=== PATIENT | female | born 1940 | race Caucasian/White ===

== ENCOUNTER → 2017-05-23 | Outpatient (CLI) | payer OTHER ==
[~2017-05-23] MED LIST: ALLOPURINOL 10100 M3 PO; ALTACE10 MG PO; ANTIVERT25 MG PO; ASPIR 8181 MG PO; AUGMENTIN 875875 MG PO; BENTYL20 MG PO; CARVEDILOL12.5 MG PO; CLONIDINE0.1 PO; CO Q-10100 MG PO; COREG12.5 MG PO; COREG25 MG PO; CRESTOR5 MG PO; DARVOCET-N 1001 EACH PO; GARLIPURE600 MG PO; GLUCOTEN CAPLE1 EACH PO; HYDRALAZINE 2525 MG PO; HYDRALAZINE 5050 MG PO; HYDROCHLOROTH12.5 M1 PO; LISINOPRIL-HCT1 EAC1 PO; LISINOPRIL20 MG PO; LOPRESSOR25 PO; NASONEX17 GM NASAL; NORVASC5 M1 PO; OMEGA 3 1,0001 EACH PO; PRILOSEC 20 MG20 MG PO; SYNTHROID50 MCG PO; TRIAMTERENE-HC1 EAC2 PO; [UNRECOGNIZED DRUG - OTHER]
== END ==
LOC: M.CT 09:09
DX: Z13.6 Encounter for screening for cardiovascular disorders (principal)

== ENCOUNTER → 2017-06-06 | Outpatient (CLI) | payer OTHER | LOC: M.ULTRA 08:43 | DX: N18.3 Chronic kidney disease, stage 3 (moderate) (principal) ==

== ENCOUNTER 2017-12-29 13:32 | Emergency (ER) | payer OTHER ==
[~2017-12-29] VITALS: Ht 162.6 cm; Wt 78.5 kg
[~2017-12-29 13:32] MED LIST changes: -ALTACE10 MG PO; -ANTIVERT25 MG PO; -CLONIDINE0.1 PO; -COREG12.5 MG PO; -COREG25 MG PO; -HYDRALAZINE 5050 MG PO; -HYDROCHLOROTH12.5 M1 PO; -NORVASC5 M1 PO
[2017-12-29] MEDS ORDERED: COREG12.5 MG PO (13:44)
[2017-12-29 14:02] LABS: ABSOLUTE BASOPHILS 0.1 thou/uL (0.0-0.2); ABSOLUTE EOSINOPHILS 0.1 thou/uL (0.0-0.7); ABSOLUTE MONOCYTES 0.5 thou/uL (0.0-1.2); ABSOLUTE NEUTROPHILS 5.2 thou/uL (1.6-8.1); EOSINOPHILS 0.9 %; HEMATOCRIT 37.8 % (37.0-47.0); HEMOGLOBIN 12.9 gm/dL (12.0-15.0); LYMPHOCYTES 25.3 %; MCH 32.1 pg (26.0-34.0); MCV 94.3 fL (80.0-100.0); MONOCYTES 6.8 %; MPV 7.2 fl. (7.2-11.1); NUCLEATED RBCS 0 /100WBC; PLATELET COUNT* 279 thou/uL (150-400); RBC 4.01 mil/uL (4.20-5.00); RDW-CV 14.1 % (10.5-14.5); WBC 7.8 thou/uL (4.0-11.0)
[2017-12-29 14:08] LABS: ANION GAP 5 mmol/L (7-16); BUN 17 mg/dL (7-18); CALCIUM 9.3 mg/dL (8.5-10.1); CHLORIDE 92 mmol/L (98-107); CO2 30 mmol/L (21-32); CREATININE 1.1 mg/dL (0.6-1.3); GLUCOSE 131 mg/dL (70-99); POTASSIUM 3.7 mmol/L (3.5-5.1); SODIUM 127 mmol/L (136-145)
[2017-12-29 14:16] LABS: ALBUMIN 3.7 g/dL (3.4-5.0); ALKALINE PHOSPHATASE 69 U/L (46-116); SGOT 19 U/L (15-37); SGPT 21 U/L (30-65); TOTAL BILIRUBIN 0.6 mg/dL (<0.1-1.0); TROPONIN-I LEVEL <0.06 ng/mL (<0.06)
[2017-12-29 15:05] LABS: URINE BILIRUBIN NEGATIVE (Negative); URINE BLOOD NEGATIVE (Negative); URINE CLARITY CLEAR; URINE COLOR YELLOW; URINE GLUCOSE-RANDOM NEGATIVE (Negative); URINE KETONES NEGATIVE (Negative); URINE LEUKOCYTES-REFLEX NEGATIVE (Negative); URINE NITRITE-REFLEX NEGATIVE (Negative); URINE PROTEIN NEGATIVE (Negative); URINE SPECIFIC GRAVITY <= 1.005 (1.005-1.030); URINE UROBILINOGEN 0.2 E.U./dl (0.2-1.0)
[2017-12-29] MEDS ORDERED: COREG25 MG PO ×2 (16:01→16:28)
[2017-12-29] MEDS ORDERED: ANTIVERT25 MG PO ×2 (16:01→16:28)
[2017-12-29] MEDS ORDERED: HYDRALAZINE 5050 MG PO (16:01)
[2017-12-29 16:05] VITALS: BP 168/57
[2017-12-29] MEDS ORDERED: NORVASC5 M1 PO (16:28)
--- NOTE | 2017-12-30 10:36 | EKG ---
[place] [address] ELECTROCARDIOGRAM REPORT Name: ARMANDO RYAN Room: [facility]#: [id number] Admission: 12/29/17 Attend Phys: Discharge: 12/29/17 Date of : 38 Report #: [id number] THIS REPORT FOR: //name// [facility] ED Test Date: 2017-12-29 Test Time: 14:08:15 Pat Name: ARMANDO RYAN Department: Room: Gender: F Nutrient Management Specialist: ANEL : 1940 Requested By: Miki Gracia Order Number: [id number] MD: Matteo Mercado Measurements Intervals [place] Rate: 59 P: 0 SD: 207 QRS: -53 QRSD: 102 T: 48 QT: 415 QTc: 412 Interpretive Statements Sinus rhythm Probable left atrial enlargement Left anterior fascicular block Abnormal R-wave progression, late transition Compared to ECG 12/28/2016 12:14:58 Myocardial infarct finding no longer present Electronically Signed On 12-30-2017 10:36:14 CDT by Matteo Mercado [email or web address] <ELECTRONICALLY SIGNED> By: Matteo Mercado MD, [facility] 12/30/17 1036 1408 1408 Matteo Mercado MD, [facility] /EPI
== END 2017-12-29 16:35 | disposition home or self-care (01) ==
LOC: M.ERS 13:32
PROVIDERS: Emergency Medicine Emergency Medical Services
DX: I10 Essential (primary) hypertension (principal); R42 Dizziness and giddiness; K21.9 Gastro-esophageal reflux disease without esophagitis; E78.00 Pure hypercholesterolemia, unspecified; Z90.49 Acquired absence of other specified parts of digestive tract; E03.9 Hypothyroidism, unspecified; Z88.1 Allergy status to other antibiotic agents; Z88.8 Allergy status to other drugs, medicaments and biological substances

== ENCOUNTER → 2018-01-10 | Outpatient (CLI) | payer OTHER ==
[~2018-01-10] MED LIST changes: +ALTACE10 MG PO; +ANTIVERT25 MG PO; +COREG12.5 MG PO; +COREG25 MG PO; +HYDRALAZINE 5050 MG PO; +NORVASC5 M1 PO
[2018-01-10 11:17] LABS: CALCIUM 9.7 mg/dL (8.5-10.1); CREATININE 1.1 mg/dL (0.6-1.3); POTASSIUM 4.1 mmol/L (3.5-5.1)
== END ==
LOC: M.LAB 10:42
PROVIDERS: Internal Medicine
DX: R60.9 Edema, unspecified (principal)

== ENCOUNTER 2018-02-06 15:14 | Inpatient (IN) | payer OTHER ==
[~2018-02-06] VITALS: Ht 162.6 cm; Wt 78.0 kg
[~2018-02-06 15:14] MED LIST changes: -ALTACE10 MG PO
[2018-02-06 15:36] VITALS: BP 216/92
[2018-02-06] MEDS ORDERED: COREG25 MG PO (15:42)
[2018-02-06] MEDS ORDERED: ALTACE10 MG PO (15:45)
[2018-02-06 16:20] LABS: ABSOLUTE EOSINOPHILS 0.1 thou/uL (0.0-0.7); ABSOLUTE LYMPHOCYTES 1.7 thou/uL (0.8-5.3); ABSOLUTE MONOCYTES 0.5 thou/uL (0.0-1.2); ABSOLUTE NEUTROPHILS 4.2 thou/uL (1.6-8.1); BASOPHILS 0.6 %; EOSINOPHILS 1.8 %; HEMATOCRIT 35.4 % (37.0-47.0); HEMOGLOBIN 11.8 gm/dL (12.0-15.0); LYMPHOCYTES 25.5 %; MCH 32.3 pg (26.0-34.0); MCHC 33.3 g/dL (28.0-37.0); MCV 97.1 fL (80.0-100.0); MONOCYTES 8.4 %; MPV 8.1 fl. (7.2-11.1); NUCLEATED RBCS 0 /100WBC; PLATELET COUNT* 238 thou/uL (150-400); POLYS 63.7 %; RBC 3.65 mil/uL (4.20-5.00); RDW-CV 14.3 % (10.5-14.5); WBC 6.5 thou/uL (4.0-11.0)
[2018-02-06 16:30] LABS: ANION GAP 7 mmol/L (7-16); BUN 18 mg/dL (7-18); CALCIUM 9.3 mg/dL (8.5-10.1); CHLORIDE 105 mmol/L (98-107); CO2 29 mmol/L (21-32); CREATININE 1.1 mg/dL (0.6-1.3); GLUCOSE 106 mg/dL (70-99); POTASSIUM 4.1 mmol/L (3.5-5.1); SODIUM 141 mmol/L (136-145)
[2018-02-06 16:36] LABS: ALBUMIN 3.4 g/dL (3.4-5.0); ALKALINE PHOSPHATASE 76 U/L (46-116); SGOT 32 U/L (15-37); SGPT 42 U/L (30-65); TOTAL BILIRUBIN 0.5 mg/dL (<0.1-1.0); TOTAL PROTEIN 6.6 g/dL (6.4-8.2); TROPONIN-I LEVEL <0.06 ng/mL (<0.06)
[2018-02-06 18:17] LABS: URINE BILIRUBIN NEGATIVE (Negative); URINE BLOOD NEGATIVE (Negative); URINE CLARITY CLEAR; URINE COLOR STRAW; URINE GLUCOSE-RANDOM NEGATIVE (Negative); URINE KETONES NEGATIVE (Negative); URINE LEUKOCYTES NEGATIVE (Negative); URINE NITRITE NEGATIVE (Negative); URINE PROTEIN NEGATIVE (Negative); URINE SPECIFIC GRAVITY 1.015 (1.005-1.030); URINE UROBILINOGEN 0.2 E.U./dl (0.2-1.0)
--- NOTE | 2018-02-06 18:21 | NUR ---
TAMARA NOTIFIED UPON PT RETURN FROM CT. PT CONNECTED TO MONITOR
[2018-02-06 20:25] VITALS: BP 126/49
[2018-02-07 00:29] VITALS: BP 143/74
[2018-02-07 04:00] VITALS: BP 176/62
--- NOTE | 2018-02-07 06:15 | NUR ---
PATIENT PARTIALLY PROGRESSING TOWARDS GOALS: PATIENT DENIES PAIN AND DISCOMFORT. BLOOD PRESSURE WAS IMPROVED UPON ARRIVAL TO UNIT, HOWEVER, IS ELEVATED AGAIN ON AM VITALS. PATIENT REMAINS UP INDEPENDENTLY WITH NO COMPLICATIONS. HOURLY ROUNDING OBSERVED. CALL LIGHT WITHIN REACH
--- NOTE | 2018-02-07 11:21 | EKG ---
[place] [address] ELECTROCARDIOGRAM REPORT Name: ARMANDO RYAN Room: [place] [address] ADM IN .R.#: [id number] Admission: 02/06/18 Attend Phys: Flor Robison Discharge: Date of : 38 Report #: [id number] THIS REPORT FOR: //name// [facility] ED Test Date: 2018-02-06 Test Time: 15:40:12 Pat Name: ARMANDO RYAN Department: Room: [facility] Gender: F Physician Pediatrician: : 1940 Requested By: Jing Medina Order Number: [id number] MD: Molina Deras Measurements Intervals [place] Rate: 62 P: 63 TX: 182 QRS: -35 QRSD: 99 T: 46 QT: 410 QTc: 417 Interpretive Statements Sinus rhythm Left atrial enlargement Left axis deviation RSR' in V1 or V2, probably normal variant Consider anterior infarct Minimal ST depression, lateral leads Compared to ECG 12/29/2017 14:08:15 Left-axis deviation now present RSR' in V1 or V2 now present Myocardial infarct finding now present ST (T wave) deviation now present Left anterior fascicular block no longer present Electronically Signed On 02-07-2018 11:21:15 FREIGHT LOADER by Molina Deras [email or web address] <ELECTRONICALLY SIGNED> By: Molina Deras MD, [facility] 02/07/18 1121 1540 1540 Molina Deras MD, FAC /EPI
[2018-02-07 11:23] VITALS: BP 145/55
--- NOTE | 2018-02-07 12:20 | NUR ---
MET WITH PT TO DISCUSS HOME SITUATION/DC PLANNING PT LIVES ALONE, GRANDDTR STAYS WITH HER SOME. PT IS INDEPENDENT, USES NO EQUIPMENT. SHE PLANS TO RETURN HOME AT DC. DENIES NEEDS
[2018-02-07 14:06] VITALS: BP 145/55
[2018-02-07 15:48] VITALS: BP 207/61
--- NOTE | 2018-02-07 17:51 | NUR ---
PT IS NOT PROGRESSING TOWARD GOALS. PT BP CONTINUES TO RISE. PRN CLONIDINE PATCH ADDED TO ASSIST WITH HIGH BP. PT CONCERNED WITH BP
[2018-02-07 20:00] VITALS: BP 126/49
[2018-02-08] VITALS (7 sets, daily range): BP systolic 146–199; BP diastolic 57–78
--- NOTE | 2018-02-08 04:50 | NUR ---
PT. SOMEWHAT PROGRESSING TOWARDS GOALS. BP HAS CONTINUED TO CLIMB THROUGHOUT SHIFT, SYSTOLIC BP 191. RIGHT AC IV SALINE LOCKED. PT. IS NPO FOR RENAL ULTRASOUND TODAY. CALL LIGHT IN REACH, WILL CONTINUE TO MONITOR.
--- NOTE | 2018-02-08 05:00 | NUR ---
HOURLY ROUNDING COMPLETED THROUGHOUT SHIFT, REMAINS SINUS RHYTHM/BRADYCARDIC AT TIMES ON MONITOR.
--- NOTE | 2018-02-08 11:16 | NUR ---
PATIENT IS ALERT AND ORIENTED X 4. SHE DENIES PAIN AND DISCOMFORT. HER BP REMAINS ELEVATED THIS AM. MEDICATIONS GIVEN PER ORDER AND PATIENT INSTRUCTED ON MEDICATION DOSAGE CHANGES. SHE VERBALIZED UNDERSTANDING OF ALL INSTRUCTIONS. PATIENT TAKEN TO RADIOLOGY PER W/C FOR RENAL US AND RETURNED. DIET RESUMED. TELE SHOWS SR TO SBRADY. PATIENT IS RESTING AT THIS TIME WILL CONTINUE TO MONITOR VS.
[2018-02-09] VITALS: BP 125/57
--- NOTE | 2018-02-09 00:30 | NUR ---
ASSUMED PT CARE AT 1930. ASSESSMENT COMPLETED CHARTED. ABLE TO MAKE NEEDS KNOWN. PT RESTING IN BED AT THIS TIME. BLOOD PRESSURES THIS SHIFT WERE BETTER. NO C/O PAIN OR DISCOMFORT. WILL CONTINUE TO MONITOR.
[2018-02-09 04:00] VITALS: BP 144/57
[2018-02-09 05:16] LABS: CALCIUM 8.9 mg/dL (8.5-10.1); CREATININE 1.1 mg/dL (0.6-1.3); MAGNESIUM 1.8 mg/dL (1.8-2.4); POTASSIUM 4.1 mmol/L (3.5-5.1)
[2018-02-09 08:00] VITALS: BP 155/57
[2018-02-09] MEDS ORDERED: HYDROCHLOROTH12.5 M1 PO (09:56)
[2018-02-09] MEDS ORDERED: ALTACE10 MG PO (09:56)
[2018-02-09] MEDS ORDERED: CLONIDINE0.1 PO (09:56)
[2018-02-09 12:00] VITALS: BP 182/53
[2018-02-09 13:00] VITALS: BP 187/68
--- NOTE | 2018-02-09 19:54 | NUR ---
PT ASSESSMENT CHARTED. VSS. EXTENSIVE EDUCATION GONE OVER WITH PATIENT REGARDING BLOOD PRESSURE MEDICATION. PRN CLONIDINE ADDED THIS AFTERNOON FOR AN ELEVATED BP. NO OTHER CONCERNS AT THIS TIME. PT DISCHARGED HOME AT 1545. SCRIPTS SENT WITH PATIENT.
== END 2018-02-09 16:00 | disposition home or self-care (01) | DRG 305 ==
LOC: M.ERS 15:14 → M.2W 19:00 → M.TBA-ER 19:00 → M.2W 23:36
PROVIDERS: Internal Medicine; Nurse Practitioner Family; ADMIT Internal Medicine
DX: I16.1 Hypertensive emergency (principal); J01.00 Acute maxillary sinusitis, unspecified; E03.9 Hypothyroidism, unspecified; I12.9 Hypertensive chronic kidney disease with stage 1 through stage 4 chronic kidney disease, or unspecified chronic kidney disease; N18.9 Chronic kidney disease, unspecified; K21.9 Gastro-esophageal reflux disease without esophagitis; E78.00 Pure hypercholesterolemia, unspecified; J32.0 Chronic maxillary sinusitis; Z90.49 Acquired absence of other specified parts of digestive tract; Z79.82 Long term (current) use of aspirin; Z79.899 Other long term (current) drug therapy; Z88.1 Allergy status to other antibiotic agents; Z88.8 Allergy status to other drugs, medicaments and biological substances; Z82.3 Family history of stroke

== ENCOUNTER 2018-02-14 06:16 | Emergency (ER) | payer OTHER ==
[~2018-02-14] VITALS: Ht 162.6 cm; Wt 78.5 kg
[~2018-02-14 06:16] MED LIST changes: +ALTACE10 MG PO; +CLONIDINE0.1 PO; +HYDROCHLOROTH12.5 M1 PO
[2018-02-14] MEDS ORDERED: D3 (06:27)
[2018-02-14] MEDS ORDERED: MAGNESIUM (06:28)
[2018-02-14 06:42] LABS: ABSOLUTE EOSINOPHILS 0.1 thou/uL (0.0-0.7); ABSOLUTE LYMPHOCYTES 1.6 thou/uL (0.8-5.3); ABSOLUTE MONOCYTES 0.5 thou/uL (0.0-1.2); ABSOLUTE NEUTROPHILS 3.7 thou/uL (1.6-8.1); BASOPHILS 0.5 %; EOSINOPHILS 1.3 %; HEMATOCRIT 36.1 % (37.0-47.0); HEMOGLOBIN 12.2 gm/dL (12.0-15.0); MCHC 33.7 g/dL (28.0-37.0); MCV 94.8 fL (80.0-100.0); MONOCYTES 8.1 %; MPV 7.9 fl. (7.2-11.1); NUCLEATED RBCS 0 /100WBC; PLATELET COUNT* 272 thou/uL (150-400); POLYS 63.1 %; RBC 3.81 mil/uL (4.20-5.00); RDW-CV 13.7 % (10.5-14.5); WBC 5.9 thou/uL (4.0-11.0)
[2018-02-14 06:46] LABS: ANION GAP 9 mmol/L (7-16); BUN 22 mg/dL (7-18); CALCIUM 9.3 mg/dL (8.5-10.1); CHLORIDE 95 mmol/L (98-107); CO2 27 mmol/L (21-32); CREATININE 1.1 mg/dL (0.6-1.3); GLUCOSE 95 mg/dL (70-99); POTASSIUM 3.7 mmol/L (3.5-5.1); SODIUM 131 mmol/L (136-145)
[2018-02-14 06:53] LABS: ALBUMIN 3.6 g/dL (3.4-5.0); ALKALINE PHOSPHATASE 77 U/L (46-116); SGOT 15 U/L (15-37); SGPT 21 U/L (30-65); TOTAL BILIRUBIN 0.8 mg/dL (<0.1-1.0); TROPONIN-I LEVEL <0.06 ng/mL (<0.06)
[2018-02-14] MEDS ORDERED: ALTACE10 MG PO (07:38)
[2018-02-14 07:56] VITALS: BP 175/66
--- NOTE | 2018-02-14 10:01 | EKG ---
[place] [address] ELECTROCARDIOGRAM REPORT Name: ARMANDO RYAN Room: [facility]#: [id number] Admission: 02/14/18 Attend Phys: Discharge: 02/14/18 Date of : 38 Report #: [id number] THIS REPORT FOR: //name// [facility] ED Test Date: 2018-02-14 Test Time: 06:30:58 Pat Name: ARMANDO RYAN Department: Room: Gender: F Captain Fire Prevention Bureau: Umu BRYSON : 1940 Requested By: Lissa Sutton Order Number: [id number] MD: Molina Deras Measurements Intervals [place] Rate: 53 P: 68 MS: 194 QRS: -39 QRSD: 104 T: 58 QT: 437 QTc: 411 Interpretive Statements Sinus rhythm Probable left atrial enlargement Left axis deviation Probable anteroseptal infarct, old Compared to ECG 02/06/2018 15:40:12 ST (T wave) deviation no longer present Myocardial infarct finding still present Electronically Signed On 02-14-2018 10:00:50 AUTOMATIC EQUIPMENT TECHNICIAN by Molina Deras [email or web address] <ELECTRONICALLY SIGNED> By: Molina Dersa MD, FACC 02/14/18 1000 0630 0630 Molina Deras MD, FAC /EPI
== END 2018-02-14 07:57 | disposition home or self-care (01) ==
LOC: M.ERS 06:16
PROVIDERS: Emergency Medicine
DX: I10 Essential (primary) hypertension (principal); E03.9 Hypothyroidism, unspecified; K21.9 Gastro-esophageal reflux disease without esophagitis; E78.00 Pure hypercholesterolemia, unspecified; Z90.49 Acquired absence of other specified parts of digestive tract; Z88.1 Allergy status to other antibiotic agents; Z88.8 Allergy status to other drugs, medicaments and biological substances

== ENCOUNTER 2018-02-18 22:45 | Emergency (ER) | payer OTHER ==
[~2018-02-18] VITALS: Ht 162.6 cm; Wt 78.5 kg
[~2018-02-18 22:45] MED LIST changes: +D3; +MAGNESIUM
[2018-02-19] MEDS ORDERED: RESTORIL7.5 MG PO (00:12)
[2018-02-19 00:20] VITALS: BP 171/67
== END 2018-02-19 00:21 | disposition home or self-care (01) ==
LOC: M.ERS 22:45
DX: I10 Essential (primary) hypertension (principal); K21.9 Gastro-esophageal reflux disease without esophagitis; E78.00 Pure hypercholesterolemia, unspecified; Z90.49 Acquired absence of other specified parts of digestive tract; Z88.1 Allergy status to other antibiotic agents; Z88.8 Allergy status to other drugs, medicaments and biological substances

== ENCOUNTER 2018-07-30 14:09 | Emergency (ER) | payer OTHER ==
[~2018-07-30] VITALS: Ht 162.6 cm; Wt 78.5 kg
[~2018-07-30 14:09] MED LIST changes: +RESTORIL7.5 MG PO
[2018-07-30] MEDS ORDERED: COZAAR 25 MG TA25 M1 PO (14:38)
[2018-07-30] MEDS ORDERED: SYNTHROID50 MCG PO (14:39)
[2018-07-30] MEDS ORDERED: CLEOCIN HCL150 MG PO (16:22)
[2018-07-30] MEDS ORDERED: ACETAMINOPHEN-1 EAC1 PO (16:22)
[2018-07-30 16:47] VITALS: BP 184/62
== END 2018-07-30 16:49 | disposition home or self-care (01) ==
LOC: M.ERS 14:09
DX: S02.2XXB Fracture of nasal bones, initial encounter for open fracture (principal); E03.9 Hypothyroidism, unspecified; I10 Essential (primary) hypertension; K21.9 Gastro-esophageal reflux disease without esophagitis; E78.00 Pure hypercholesterolemia, unspecified; Z88.1 Allergy status to other antibiotic agents; Z90.49 Acquired absence of other specified parts of digestive tract; Z88.8 Allergy status to other drugs, medicaments and biological substances; W01.0XXA Fall on same level from slipping, tripping and stumbling without subsequent striking against object, initial encounter; Y92.89 Other specified places as the place of occurrence of the external cause; Y93.89 Activity, other specified; Y99.8 Other external cause status

== ENCOUNTER 2018-10-12 22:56 | Emergency (ER) | payer OTHER ==
[~2018-10-12] VITALS: Ht 162.6 cm; Wt 86.4 kg
[~2018-10-12 22:56] MED LIST changes: +ACETAMINOPHEN-1 EAC1 PO; +CLEOCIN HCL150 MG PO; +COZAAR 25 MG TA25 M1 PO
[2018-10-12 23:33] LABS: ABSOLUTE EOSINOPHILS 0.1 thou/uL (0.0-0.7); ABSOLUTE MONOCYTES 0.6 thou/uL (0.0-1.2); ABSOLUTE NEUTROPHILS 2.9 thou/uL (1.6-8.1); BASOPHILS 0.9 %; EOSINOPHILS 2.4 %; HEMATOCRIT 35.8 % (37.0-47.0); HEMOGLOBIN 12.1 gm/dL (12.0-15.0); MCH 31.2 pg (26.0-34.0); MCHC 33.6 g/dL (28.0-37.0); MCV 92.9 fL (80.0-100.0); MPV 7.4 fl. (7.2-11.1); NUCLEATED RBCS 0 /100WBC; PLATELET COUNT* 256 thou/uL (150-400); POLYS 50.7 %; RBC 3.86 mil/uL (4.20-5.00); RDW-CV 13.8 % (10.5-14.5); WBC 5.8 thou/uL (4.0-11.0)
[2018-10-12 23:41] LABS: ANION GAP 9 mmol/L (7-16); BUN 25 mg/dL (7-18); CALCIUM 9.2 mg/dL (8.5-10.1); CHLORIDE 98 mmol/L (98-107); CO2 26 mmol/L (21-32); CREATININE 1.3 mg/dL (0.6-1.3); GLUCOSE 92 mg/dL (70-99); POTASSIUM 4.2 mmol/L (3.5-5.1); SODIUM 133 mmol/L (136-145)
[2018-10-12 23:44] LABS: INR 1.1; PROTIME 10.8 Seconds (9.20-11.50)
[2018-10-12 23:50] LABS: ALBUMIN 3.8 g/dL (3.4-5.0); ALKALINE PHOSPHATASE 79 U/L (46-116); SGOT 18 U/L (15-37); SGPT 22 U/L (30-65); TOTAL BILIRUBIN 0.5 mg/dL (<0.1-1.0); TROPONIN-I LEVEL <0.06 ng/mL (<0.06)
[2018-10-13 01:04] VITALS: BP 164/68
--- NOTE | 2018-10-13 16:44 | EKG ---
[place] [address] ELECTROCARDIOGRAM REPORT Name: ARMANDO RYAN Room: [facility]#: [id number] Admission: 10/12/18 Attend Phys: Discharge: 10/13/18 Date of : 38 Report #: [id number] THIS REPORT FOR: //name// [facility] ED Test Date: 2018-10-12 Test Time: 23:22:54 Pat Name: ARMANDO RYAN Department: Room: Gender: F Staff Radiologist: [place] : 1940 Requested By: Bina Tripp Order Number: [id number] MD: Matteo Mercado Measurements Intervals [place] Rate: 54 P: 55 IA: 200 QRS: -36 QRSD: 101 T: 57 QT: 428 QTc: 406 Interpretive Statements Sinus rhythm Probable left atrial enlargement Left axis deviation Consider anterior infarct Compared to ECG 02/14/2018 06:30:58 No significant changes Electronically Signed On 10-13-2018 16:44:17 CDT by Matteo Mercado [email or web address] <ELECTRONICALLY SIGNED> By: Matteo Mercado MD, [facility] 10/13/18 1644 232 21 Matteo Mercado MD, FACC /EPI
== END 2018-10-13 01:05 | disposition home or self-care (01) ==
LOC: M.ERS 22:56
PROVIDERS: Personal Emergency Response Attendant
DX: I16.0 Hypertensive urgency (principal); E03.9 Hypothyroidism, unspecified; I10 Essential (primary) hypertension; K21.9 Gastro-esophageal reflux disease without esophagitis; E78.00 Pure hypercholesterolemia, unspecified; Z90.49 Acquired absence of other specified parts of digestive tract; Z88.1 Allergy status to other antibiotic agents; Z88.8 Allergy status to other drugs, medicaments and biological substances

== ENCOUNTER 2020-05-26 19:47 | Emergency (ER) | payer OTHER ==
[~2020-05-26] VITALS: Ht 162.6 cm; Wt 81.7 kg
[2020-05-26 20:02] LABS: ABSOLUTE BASOPHILS 0.1 thou/uL (0.0-0.2); ABSOLUTE EOSINOPHILS 0.1 thou/uL (0.0-0.7); ABSOLUTE LYMPHOCYTES 2.2 thou/uL (0.8-5.3); ABSOLUTE MONOCYTES 0.8 thou/uL (0.0-1.2); ABSOLUTE NEUTROPHILS 4.2 thou/uL (1.6-8.1); BASOPHILS 0.8 %; EOSINOPHILS 1.7 %; HEMATOCRIT 36.7 % (37.0-47.0); HEMOGLOBIN 12.4 gm/dL (12.0-15.0); LYMPHOCYTES 29.9 %; MCH 31.8 pg (26.0-34.0); MCHC 33.7 g/dL (28.0-37.0); MCV 94.3 fL (80.0-100.0); MONOCYTES 10.7 %; MPV 7.4 fl. (7.2-11.1); NUCLEATED RBCS 0 /100WBC; PLATELET COUNT* 289 thou/uL (150-400); POLYS 56.9 %; RDW-CV 13.7 % (10.5-14.5); WBC 7.3 thou/uL (4.0-11.0)
[2020-05-26 20:11] LABS: CALCIUM 9.2 mg/dL (8.5-10.1); CREATININE 1.5 mg/dL (0.6-1.3)
[2020-05-26] MEDS ORDERED: CHLORTHALIDONE25 MG (20:11)
[2020-05-26 20:13] LABS: PROTIME 10.8 Seconds (9.20-11.50)
[2020-05-26 20:22] LABS: MAGNESIUM 1.7 mg/dL (1.8-2.4); TOTAL BILIRUBIN 0.5 mg/dL (<0.1-1.0); TOTAL PROTEIN 7.1 g/dL (6.4-8.2)
[2020-05-26 20:29] LABS: URINE BILIRUBIN NEGATIVE (Negative); URINE BLOOD NEGATIVE (Negative); URINE CLARITY CLEAR; URINE COLOR YELLOW; URINE GLUCOSE-RANDOM NEGATIVE (Negative); URINE KETONES NEGATIVE (Negative); URINE LEUKOCYTES-REFLEX NEGATIVE (Negative); URINE NITRITE-REFLEX NEGATIVE (Negative); URINE PROTEIN NEGATIVE (Negative); URINE UROBILINOGEN 0.2 E.U./dl (0.2-1.0)
[2020-05-26 23:17] VITALS: BP 180/62
--- NOTE | 2020-05-27 13:46 | EKG ---
[place] [address] ELECTROCARDIOGRAM REPORT Name: ARMANDO RYAN Room: [facility]#: [id number] Admission: 05/26/20 Attend Phys: Discharge: 05/26/20 Date of : 38 Date of Service: 05/26/201957 Report #: [id number] THIS REPORT FOR: //name// [facility] ED Test Date: 2020-05-26 Test Time: 19:58:38 Pat Name: ARMANDO RYAN Department: Room: Gender: F Community Service Organization Director: GISELE : 1940 Requested By: Lissa Sutton Order Number: [id number] MD: Austin Freitas Measurements Intervals [place] Rate: 62 P: 59 ME: 201 QRS: -47 QRSD: 105 T: 62 QT: 418 QTc: 425 Interpretive Statements Sinus rhythm Ventricular premature complex Left anterior fascicular block late transition Baseline wander in lead(s) II,III,aVF Compared to ECG 10/12/2018 23:22:54 Ventricular premature complex(es) now present Myocardial infarct finding still present Electronically Signed On 05-27-2020 13:46:33 ANIMATED CARTOONS PAINTER by Austin Freitas [email or web address] <ELECTRONICALLY SIGNED> By: Austin Freitas MD, [facility] 05/27/20 1346 57 57 Austin Freitas MD, [facility] /EPI
== END 2020-05-26 23:18 | disposition home or self-care (01) ==
LOC: M.ERS 19:47
PROVIDERS: Emergency Medicine
DX: R07.89 Other chest pain (principal); E87.1 Hypo-osmolality and hyponatremia; E03.9 Hypothyroidism, unspecified; I10 Essential (primary) hypertension; K21.9 Gastro-esophageal reflux disease without esophagitis; E78.00 Pure hypercholesterolemia, unspecified; Z90.49 Acquired absence of other specified parts of digestive tract; Z88.1 Allergy status to other antibiotic agents; Z88.8 Allergy status to other drugs, medicaments and biological substances

== ENCOUNTER 2020-09-07 20:32 | Emergency (ER) | payer OTHER ==
[~2020-09-07] VITALS: Ht 162.6 cm; Wt 81.7 kg
[~2020-09-07 20:32] MED LIST changes: +CHLORTHALIDONE25 MG
[2020-09-07] MEDS ORDERED: HYDRALAZINE 2525 M1 PO (20:59)
[2020-09-07 22:30] VITALS: BP 193/69
== END 2020-09-07 22:30 | disposition home or self-care (01) ==
LOC: M.ERS 20:32
DX: M25.561 Pain in right knee (principal); E03.9 Hypothyroidism, unspecified; I10 Essential (primary) hypertension; K21.9 Gastro-esophageal reflux disease without esophagitis; E78.00 Pure hypercholesterolemia, unspecified; Z90.49 Acquired absence of other specified parts of digestive tract; Z88.1 Allergy status to other antibiotic agents

== ENCOUNTER 2020-10-07 17:45 | Observation (INO) | payer OTHER ==
[~2020-10-07] VITALS: Ht 162.6 cm; Wt 81.6 kg
[~2020-10-07 17:45] MED LIST changes: -CHLORTHALIDONE25 MG; +CHLORTHALIDONE25 MG PO; +HYDRALAZINE 2525 M1 PO
[2020-10-07 17:49] VITALS: BP 215/86
[2020-10-07 18:36] LABS: ABSOLUTE LYMPHOCYTES 1.6 thou/uL (0.8-5.3); ABSOLUTE MONOCYTES 0.5 thou/uL (0.0-1.2); ABSOLUTE NEUTROPHILS 5.2 thou/uL (1.6-8.1); BASOPHILS 0.4 %; EOSINOPHILS 0.5 %; HEMATOCRIT 32.7 % (37.0-47.0); HEMOGLOBIN 11.5 gm/dL (12.0-15.0); LYMPHOCYTES 22.1 %; MCH 33.5 pg (26.0-34.0); MCHC 35.1 g/dL (28.0-37.0); MCV 95.4 fL (80.0-100.0); MONOCYTES 7.3 %; NUCLEATED RBCS 0 /100WBC; PLATELET COUNT* 250 thou/uL (150-400); POLYS 69.7 %; RBC 3.43 mil/uL (4.20-5.00); RDW-CV 14.1 % (10.5-14.5); WBC 7.4 thou/uL (4.0-11.0)
[2020-10-07 19:02] LABS: CREATININE 1.3 mg/dL (0.6-1.3); POTASSIUM 3.9 mmol/L (3.5-5.1)
[2020-10-07 19:07] LABS: ALBUMIN 3.7 g/dL (3.4-5.0); TOTAL BILIRUBIN 0.9 mg/dL (<0.1-1.0); TOTAL PROTEIN 6.6 g/dL (6.4-8.2)
[2020-10-07 21:50] LABS: URINE BILIRUBIN NEGATIVE (Negative); URINE BLOOD NEGATIVE (Negative); URINE CLARITY CLEAR; URINE COLOR YELLOW; URINE GLUCOSE-RANDOM NEGATIVE (Negative); URINE KETONES NEGATIVE (Negative); URINE LEUKOCYTES-REFLEX NEGATIVE (Negative); URINE NITRITE-REFLEX NEGATIVE (Negative); URINE PROTEIN NEGATIVE (Negative); URINE SPECIFIC GRAVITY <= 1.005 (1.005-1.030); URINE UROBILINOGEN 0.2 E.U./dl (0.2-1.0)
[2020-10-07 23:16] VITALS: BP 152/46
[2020-10-08] VITALS: BP 145/68
--- NOTE | 2020-10-08 03:34 | NUR ---
RECEIVED REPORT FROM ED RN. PT TRANSFERRED TO 214. PT A&OX4. VSS. TYPESETTING MACHINE TENDER IN PLACE. ADMISSION HISTORY & PHYSICAL ASSESSMENT COMPLETED AND CHARTED. PT ON RA. PT TRACING SR ON TELE. PT UPSTANDBY TO RESTROOM. PT DENIES PAIN. CALL LIGHT WITHIN REACH.
[2020-10-08 04:34] VITALS: BP 152/60
[2020-10-08 07:30] VITALS: BP 182/53
--- NOTE | 2020-10-08 13:20 | 2DMMODE ---
[place] [address] 2 D/M-MODE ECHOCARDIOGRAM Name: ARMANDO RYAN Room: [address] Toby#: [id number] Admission: 10/07/20 Attend Phys: Jerry Reynaga Discharge: Date of : 38 Date of Service: 10/08/20 1319 Report #: [id number] THIS REPORT FOR: cc: JUN RENEE MD, CHADWICK MD Holkins, John M. MD [facility] ~ APPROVED REPORT Study performed: 10/08/2020 10:46:44 EXAM: Comprehensive 2D, Doppler, and color-flow Echocardiogram Patient Location: In-Patient Room #: Formerly named [facility] Status: routine BSA: 1.87 HR: 57 bpm BP: 152/60 mmHg Rhythm: NSR Other Information Study Quality: Good Indications Hypertension/HDD 2D Dimensions IVSd: 11.79 (7-11mm) LVOT Diam: 20.09 (18-24mm) LVDd: 40.80 mm PWd: 9.04 (7-11mm) Ascending Ao: 33.16 (22-36mm) LVDs: 23.57 (25-40mm) Aortic Root: 26.48 mm Volumes Left Atrial Volume (Systole) LA ESV Index: 30.50 mL/m2 Aortic Valve AoV Peak Scotty.: 2.04 m/s AO Peak Gr.: 16.56 mmHg LVOT Max P.63 mmHg AO Mean Gr.: 9.45 mmHg LVOT Mean P.76 mmHg LVOT Max V: 1.55 m/s AO V2 VTI: 49.03 cm LVOT Mean V: 1.00 m/s PEEWEE (VTI): 2.57 cm2 LVOT V1 VTI: 39.81 cm AI [place]: 2.39 m/s2 [place] [address] 2 D/M-MODE ECHOCARDIOGRAM Name: ARMANDO RYAN Room: [address]R.#: [id number] Admission: 10/07/20 Attend Phys: Jerry Reynaga Discharge: Date of : 38 Date of Service: 10/08/20 1319 Report #: [id number] AI PHT: 521.43 ms Mitral Valve E/A Ratio: 1.33 MV Decel. Time: 209.27 ms MV E Max Scotty.: 0.89 m/s MV PHT: 60.69 ms MVA (PHT): 3.63 cm2 TDI E/Lateral E': 11.13 E/Medial E': 11.13 Medial E' Scotty.: 0.08 m/s Lateral E' Scotty.: 0.08 m/s Pulmonary Valve PV Peak Scotty.: 1.12 m/s PV Peak Gr.: 5.00 mmHg Left Ventricle The left ventricle is normal size. There is normal LV segmental wall motion. There is normal left ventricular wall thickness. Left ventricular systolic function is normal. The left ventricular ejection fraction is within the normal range. LVEF is 60-65%. The left ventricular diastolic function is normal. Right Ventricle The right ventricle is normal size. The right ventricular systolic function is normal. Atria The left atrium size is normal. The right atrium size is normal. Aortic Valve Mild aortic valve sclerosis. Mild to moderate aortic regurgitation. Mild aortic stenosis. Mitral Valve The mitral valve is normal in structure. Mild mitral regurgitation. No evidence of mitral valve stenosis. Tricuspid Valve The tricuspid valve is normal in structure. Trace tricuspid regurgitation. Pulmonic Valve The pulmonary valve is normal in structure. There is no pulmonic [place] [address] 2 D/M-MODE ECHOCARDIOGRAM Name: ARMANDO RYAN Room: [address] M.R.#: [id number] Admission: 10/07/20 Attend Phys: Jerry Reynaga Discharge: Date of : 38 Date of Service: 10/08/20 1319 Report #: [id number] valvular regurgitation. Great Vessels The aortic root is normal in size. IVC is normal in size and collapses >50% with inspiration. Pericardium There is no pericardial effusion. <Conclusion> The left ventricle is normal size. There is normal left ventricular wall thickness. Left ventricular systolic function is normal. The left ventricular ejection fraction is within the normal range. LVEF is 60-65%. The left ventricular diastolic function is normal. The right ventricle is normal size. The left atrium size is normal. Mild aortic valve sclerosis. Mild to moderate aortic regurgitation. Mild aortic stenosis. The mitral valve is normal in structure. Mild mitral regurgitation. The tricuspid valve is normal in structure. Trace tricuspid regurgitation. IVC is normal in size and collapses >50% with inspiration. There is no pericardial effusion. There is normal LV segmental wall motion. <ELECTRONICALLY SIGNED> By: Matteo Mercado MD, FACC 10/08/209 18 18 Matteo Mercado MD, FACC /INF
--- NOTE | 2020-10-08 13:57 | NUR ---
Pt is A&O. Resides at home alone. Active and independent. No DME. No hx of HH or SNF. Supportive family that is involved in POC. Goal is home at dc. No needs anticipated. Cardiology consulted. Anticipate dc either later today or tomorrow.
[2020-10-08 14:58] VITALS: BP 121/45
--- NOTE | 2020-10-08 16:24 | EKG ---
[place] [address] ELECTROCARDIOGRAM REPORT Name: CONNORARMANDO Room: [address] M.R.#: [id number] Admission: 10/07/20 Attend Phys: Jerry Reynaga Discharge: Date of : 38 Date of Service: 10/07/20 181 Report #: [id number] THIS REPORT FOR: //name// [facility] ED Test Date: 2020-10-07 Test Time: 18:14:55 Pat Name: ARMANDO RYAN Department: Room: [facility] Gender: F Labor Arbitrator Hearing Office: [place] : 1940 Requested By: Miki Gracia Order Number: [id number] MD: Matteo Mercado Measurements Intervals [place] Rate: 60 P: 52 MS: 198 QRS: -48 QRSD: 106 T: 39 QT: 413 QTc: 413 Interpretive Statements Sinus rhythm Probable left atrial enlargement Left anterior fascicular block Possible anteroseptal infarct, old Compared to ECG 05/26/2020 19:58:38 Poor R wave progression persists over the right precordium Ventricular premature complex(es) no longer present Electronically Signed On 10-08-2020 16:24:30 CDT by Matteo Mercado [email or web address] <ELECTRONICALLY SIGNED> By: Matteo Mercado MD, [facility] 10/08/20 1624 13 13 Matteo Mercado MD, [facility] /EPI
[2020-10-08 19:00] VITALS: BP 142/57
--- NOTE | 2020-10-08 19:52 | NUR ---
A&OX 4, PWD. IV FLUIDS DC'D THIS AFTERNOON. PT STARTED BACK ON HER HOME MEDICATIONS AND NEW BLOOD PRESSURE MEDS. B/P THIS AM WAS 182/53 AND CAME DOWN TO 139/52 THIS EVENING. UP WITH ASSIST TO BATHROOM AND BACK TO BED. NO C/O PAIN. WILL CONTINUE TO MONITOR.
[2020-10-09] VITALS: BP 164/47
[2020-10-09 04:00] VITALS: BP 151/51
[2020-10-09 05:02] LABS: HEMATOCRIT 30.4 % (37.0-47.0); HEMOGLOBIN 10.8 gm/dL (12.0-15.0); MCHC 35.5 g/dL (28.0-37.0); MCV 95.7 fL (80.0-100.0); MPV 6.9 fl. (7.2-11.1); RBC 3.18 mil/uL (4.20-5.00); RDW-CV 14.5 % (10.5-14.5); WBC 6.4 thou/uL (4.0-11.0)
[2020-10-09 05:11] LABS: CALCIUM 8.6 mg/dL (8.5-10.1)
--- NOTE | 2020-10-09 05:46 | NUR ---
PT AO X4 SITTING IN CHAIR FOR ASSESSMENT, BP 151/46,ALL OTHER VSS. PT SLEPT WELL THROUGHOUT THE SHIFT, SHE IS AMBULATING INDEPENDENTLY TO TOILET WITH NO PROBLEM. PT IS ON ROOM AIR AND DENIES COUGH. TELEMETRY SB/SR CALL LIGHT WITHIN REACH.
[2020-10-09 08:00] VITALS: BP 138/52
[2020-10-09] MEDS ORDERED: CLONIDINE1 EACH TRANSDERM (08:32)
[2020-10-09] MEDS ORDERED: HYDRALAZINE 2525 M1 PO (08:46)
[2020-10-09 10:07] LABS: CHOLESTEROL 161 mg/dL (<200); HDL CHOLESTEROL 66 mg/dL (>40); LDL CHOLESTEROL 85 mg/dL (<100); SERUM ASSESSMENT Clear; TC:HDL 2.4 Ratio (Not establshd); TRIGLYCERIDE 50 mg/dL (<150); VLDL 10 mg/dL (<40)
[2020-10-09 11:02] VITALS: BP 138/52
--- NOTE | 2020-10-09 11:42 | NUR ---
PT DISCHARGED HOME WITH ALL BELONGINGS. VSS AFEBRILE. PT HAS GOOD UNDERSTANDING OF DISCHARGE MEDICATIONS. PT DENIES PAIN ON DISCHARGE. SALINE LOCK REMOVED HUB INTACT. PT DISMISSED HOME.
== END 2020-10-09 11:30 | disposition home or self-care (01) ==
LOC: M.ERS 17:45 → M.TBA-ER 21:58 → M.2W 21:58
PROVIDERS: Emergency Medicine; Emergency Medicine Emergency Medical Services; Registered Nurse; ADMIT Internal Medicine; ATTEND Internal Medicine
DX: I16.0 Hypertensive urgency (principal); Z20.822 Contact with and (suspected) exposure to COVID-19; I10 Essential (primary) hypertension; E87.1 Hypo-osmolality and hyponatremia; E03.9 Hypothyroidism, unspecified; E78.5 Hyperlipidemia, unspecified; K21.9 Gastro-esophageal reflux disease without esophagitis; R42 Dizziness and giddiness; Z79.899 Other long term (current) drug therapy